=== PATIENT | female | born 1985 | race Caucasian/White ===

== ENCOUNTER → 2016-09-13 | Outpatient (CLI) | payer MEDICAID ==
[~2016-09-13] MED LIST: ACHD5005 PO; BARIUM SUSPENSION 2.1% (REDI-CAT 2) 450 ML PO ONE; CATHETER FLUSH 10 ML SYR IV PRN; CITA20TA4 PO; GBPN100C PO; HYDR-3583 PO; HYDR473S50 PO; IBUP-1773 PO; IOHEXOL 350 MG/ML 150 ML (OMNIPAQUE 350) VIAL IV ONE; ITRA100C5 PO; NS 100 ML (IVPB) BAG IV ONE; PENT100C5 PO; POTA25PA PO; RT-ALBUTEROL SULF 2.5 MG/3 ML PRE-MIX VIAL INH ONE; RT-ALBUTEROL SULF 2.5 MG/3 ML PRE-MIX VIAL ONE; TRAM50TA2 PO
--- OUTSIDE RECORDS SUMMARY | 2016-09-13 09:44 | XMS REPORT | Continuity of Care Document ---
Author Author [facility] Organization [facility] Address Unknown Phone Unavailable Care Team Providers Care Food Preparation Kitchen Aide Name Role Phone Romero Calderon PCP [phone] Source Comments Some departments are not documenting in the electronic medical record. If you do not see the information that you expected, contact Release of Information in the Health Information Management department at [phone] for further assistance in locating additional records.[facility] Active Allergies and Adverse Reactions No Known Allergies Current Medications Prescription Sig. Disp. Refills Start End Date Status Date traMADol (ULTRAM) 50 mg Take 50 mg by mouth every Active tablet 6 hours as needed for Pain. gabapentin (NEURONTIN) Take 100 mg by mouth Active 100 mg capsule three times daily. pentosan polysulfate Take 100 mg by mouth Active sodium (ELMIRON) 100 mg three times daily before capsule meals. naproxen (NAPROSYN) 500 Take 500 mg by mouth Active mg tablet twice daily with meals. DULoxetine DR (CYMBALTA) Take 1 Cap by mouth 60 Cap 5 11/03/19 Active 30 mg capsule daily. Call in 3 weeks 16 with update. Needle (Disp) 25 G 25 x Inject 1mL to area as 15 Each 0 11/10/19 Active 5/8 " ndle directed . 16 Syringe (Disposable) 3 mL Inject 1 mL to area as 15 Syringe 0 Active syrg directed. 16 Active Problems Not on file Social History Tobacco Use Types Packs/Day Years Used Date Current Every Day Smoker Cigarettes 1.5 16 Smokeless Tobacco: Never Used Alcohol Use Drinks/Week oz/Week Comments No Last Filed Vital Signs Vital Sign Reading Time Taken Blood Pressure 120/81 11/03/2015 1:20 PM CDT Pulse 91 11/03/2015 1:20 PM CDT Temperature 36.7 C (98.1 F) 11/03/2015 1:20 PM CDT Respiratory Rate - - Height 1.549 m (5' 1") 11/03/2015 1:20 PM CDT Weight 60.601 kg (133 lb 9.6 oz) 11/03/2015 1:20 PM CDT Body Mass Index 25.26 11/03/2015 1:20 PM CDT Oxygen Saturation 100% 11/03/2015 1:20 PM CDT Plan of Care Health Maintenance Due Date Last Done Comments Physical (Comprehensive) 1991 Exam Pertussis Vaccine 1995 Tetanus Vaccine 2001 Cervical Cancer Screening 2005 Influenza Vaccine 04/20/2016 Results from Last 3 Months Not on file
[2016-09-13 10:25] LABS: ANION GAP 8 MMOL/L (5-14); BLOOD UREA NITROGEN 8 MG/DL (7-18); BUN/CREATININE RATIO 11; CARBON DIOXIDE 24 MMOL/L (21-32); CHLORIDE 107 MMOL/L (98-107); CREATININE SERUM 0.72 MG/DL (0.60-1.30); GFR ESTIMATED > 60; GLUCOSE 88 MG/DL (70-105); SODIUM 139 MMOL/L (135-145)
--- NOTE | 2016-09-13 12:38 | Diagnostic Imaging Report ---
PROCEDURE: CT angiography of the chest with contrast. TECHNIQUE: Multiple contiguous axial images were obtained through the chest after uneventful bolus administration of intravenous contrast. Reconstructed CTA MIP acquisitions were also performed. INDICATION: Pulmonary blastomycosis. There are no previous studies available for comparison. FINDINGS: The heart size is within normal limits. There are no coronary artery calcifications visualized. There is no defect within the pulmonary arteries to indicate a pulmonary embolus. The aorta is not abnormally dilated, and there is no sign of a dissection. The lungs are generally clear and well aerated. There is no sign of failure, pneumonia, or a pleural effusion to suggest an acute abnormality. There is mild scar formation involving the lung parenchyma anterior to the right perihilar region. There is also a 1.4 x 2.0 cm low density in the right hilum. This is more likely due to adenopathy than to a neoplastic mass lesion, in a patient of this age. If further evaluation is desired, then bronchoscopy would be recommended. If there is no intervention at this time, then a short-term (6 month) followup CT chest exam should be obtained. There is no other mediastinal or hilar adenopathy. The thyroid gland is prominent, and there is a well-circumscribed 0.9 x 1.1 cm area of low density in the right lobe. This has a generally benign appearance, but ultrasound would be recommended to better characterize this finding. There is no obvious breast mass. The sections through the upper abdomen fail to show any sign of an acute abnormality. The bone windows are unremarkable for a fracture or for a destructive lesion. IMPRESSION: 1. There is no evidence for an acute cardiopulmonary abnormality. In particular, there is no sign of a pulmonary embolus or of a dissection. 2. The 1.4 x 2.0 cm area of low density in the right hilum is more likely due to adenopathy than to a neoplastic mass. Recommendations as above. 3. These results were discussed with Dr. Gar. Dictated by: Dictated on workstation # [id number]
== END ==
LOC: RAD 09:36
PROVIDERS: ATTEND Internal Medicine Critical Care Medicine
DX: B40.1 Chronic pulmonary blastomycosis (principal); G47.10 Hypersomnia, unspecified; Z72.0 Tobacco use
CPT/HCPCS: 36415; 71275; 80048; 94060; 94640; 94726; 94729

== ENCOUNTER 2016-10-27 09:12 | Outpatient (CLI) | payer MEDICAID ==
[~2016-10-27] VITALS: Ht 153.7 cm; Wt 68.9 kg
[~2016-10-27 09:12] MED LIST changes: -BARIUM SUSPENSION 2.1% (REDI-CAT 2) 450 ML PO ONE; -CATHETER FLUSH 10 ML SYR IV PRN; -IOHEXOL 350 MG/ML 150 ML (OMNIPAQUE 350) VIAL IV ONE; -NS 100 ML (IVPB) BAG IV ONE; -RT-ALBUTEROL SULF 2.5 MG/3 ML PRE-MIX VIAL INH ONE; -RT-ALBUTEROL SULF 2.5 MG/3 ML PRE-MIX VIAL ONE
--- OUTSIDE RECORDS SUMMARY | 2016-10-27 09:15 | XMS REPORT | Continuity of Care Document ---
Author Author [facility] Organization [facility] Address Unknown Phone Unavailable Care Team Providers Care Senior Production Planner Name Role Phone Romero Calderon PCP [phone] Source Comments Some departments are not documenting in the electronic medical record. If you do not see the information that you expected, contact Release of Information in the Health Information Management department at [phone] for further assistance in locating additional records.[facility] Active Allergies and Adverse Reactions No Known [...]
[2016-10-27] MEDS ORDERED: TRIAMCINOLONE ACET (KENALOG-40) 40 MG/ML 1 ML VIAL ONE (09:18)
[2016-10-27] MEDS ORDERED: BUPIVACAINE 0.25% 30 ML (SENSORCAINE) VIAL ONE (09:19)
[2016-10-27 09:27] VITALS: BP 139/98
[2016-10-27 09:57] VITALS: BP 131/89
--- NOTE | 2016-10-27 12:24 | Pain Medicine-Procedure ---
Procedure Pre-Op/Post-Op Diagnosis Diagnosis: Disc disorder with radiculopathy, lumbar Indications for Operation Low back pain Attending Surgeon Ana Procedure Date of Service: Oct 27, 2016 Procedure: Lumbar Epidural Steroid Injection at the L4-L5 level under Fluoroscopic Guidance Procedure: Patient was identified in the holding area. After risks, benefits, and alternatives were discussed with the patient, informed consent was obtained. Patient was brought to the fluoroscopy suite and placed prone on the procedure room table. A time out was performed. Vital signs were monitored throughout the procedure. The patients low back was prepped and draped in the usual sterile fashion. The patients skin was anesthetized using 2% Lidocaine. A Tuohy needle was inserted and advanced to the L4-L5 epidural space under fluoroscopic guidance using the loss of resistance technique and intermittent projection of fluoroscopy. There was no paresthesia with needle placement. The needle position was confirmed in both the AP and lateral view. After negative aspiration 2ml of contrast was injected under live fluoroscopy which showed good spread of the contrast in the epidural space at the appropriate level, there was no intravascular or subarachnoid spread. Again, after negative aspiration for heme or CSF, 2 ml of 0.25% Bupivicaine, 2ml of preservative free normal saline, and 80mg of Kenalog was injected. The needle was removed and a sterile bandage was placed and the patient was transferred to the recovery area in stable condition. After a brief period of observation, patient was discharged to home with no new neurological deficits and no apparent complications. Complications None LUCIA KRISHNAN MD Oct 27, 2016 12:24 pm
== END 2016-10-27 09:59 ==
LOC: CARD 09:12
PROVIDERS: ATTEND Pain Medicine Pain Medicine
DX: M51.16 Intervertebral disc disorders with radiculopathy, lumbar region (principal); Z79.899 Other long term (current) drug therapy
CPT/HCPCS: 62323